=== PATIENT | female | born 1950 | race Two or more races ===

== ENCOUNTER → 2024-07-24 | Emergency (ER) | payer OTHER ==
[~2024-07-24] VITALS: Ht 154.9 cm; Wt 52.6 kg
[~2024-07-24] MED LIST: ARICEPT5 MG; DONEPEZIL HCL10 MG PO; LOSARTAN POTASS50 MG PO; LevETIRAcetam 500 MG/5 ML VIAL IV ONE; TETANUS & DIPHTHERIA TOX,ADULT 0.5 ML VIAL IM ONE; TETANUS DIPHTHERIA TOX. ADSOR 5 ML VIAL IM ONE
[2024-07-24 13:18] LABS: HEMOGLOBIN 13.4 g/dL (12.0-15.00); MEAN CELL VOLUME 98.9 fL (80.00-100.00); MEAN CORPUSCULAR HEMOGLOBIN 33.1 pg (27.00-32.0); MEAN CORPUSCULAR HGB CONC 33.4 g/dl (32.0-36.0); PLATELET COUNT 260 K/uL (150-450); RED BLOOD COUNT 4.04 M/uL (4.00-6.00); RED CELL DISTRIBUTION WIDTH 13.2 % (11.5-14.5)
[2024-07-24 14:00] LABS: CALCIUM 10.2 mg/dL (8.5-10.1); CREATININE SERUM 0.98 mg/dL (0.55-1.02); GFR 55.63; POTASSIUM 3.51 mEq/L (3.5-5.1)
== END | disposition designated cancer center or children's hospital (05) ==
LOC: ER 12:04
PROVIDERS: General Practice
DX: S62.109A Fracture of unspecified carpal bone, unspecified wrist, initial encounter for closed fracture (principal); W19.XXXA Unspecified fall, initial encounter; Y93.89 Activity, other specified; Y92.89 Other specified places as the place of occurrence of the external cause; Y99.8 Other external cause status; I10 Essential (primary) hypertension
CPT/HCPCS: 36415; 70450; 70486; 71250; 72125; 73020; 73060; 73070; 73100; 73120; 74176; 90471; 90714; 96365; 96372; 99285; J1670; J3490 ×2